=== PATIENT | female | born 1980 | race Caucasian/White ===

== ENCOUNTER 2020-09-04 13:08 | Outpatient (CLI) | payer OTHER | END 2020-09-04 13:09 | disposition home or self-care (01) | LOC: BICRAD 13:08 | PROVIDERS: ATTEND Physician Assistant | DX: M54.5 Low back pain (principal); M47.817 Spondylosis without myelopathy or radiculopathy, lumbosacral region | CPT/HCPCS: 72100 ==

== ENCOUNTER 2020-10-05 12:54 | Outpatient (CLI) | payer OTHER | END 2020-10-05 12:55 | disposition home or self-care (01) | LOC: BICCT 12:54 | PROVIDERS: ATTEND Family Medicine | DX: M47.816 Spondylosis without myelopathy or radiculopathy, lumbar region (principal); G89.4 Chronic pain syndrome; M51.26 Other intervertebral disc displacement, lumbar region; M51.27 Other intervertebral disc displacement, lumbosacral region; N20.0 Calculus of kidney | CPT/HCPCS: 72131 ==

== ENCOUNTER 2021-07-08 07:51 | Outpatient (CLI) | payer OTHER | END 2021-07-08 07:52 | disposition home or self-care (01) | LOC: BICMAMMO 07:51 | PROVIDERS: ATTEND Nurse Practitioner Women's Health | DX: Z12.31 Encounter for screening mammogram for malignant neoplasm of breast (principal); N64.89 Other specified disorders of breast | CPT/HCPCS: 77067 ==

== ENCOUNTER 2021-07-12 08:21 | Outpatient (CLI) | payer OTHER | END 2021-07-12 08:22 | disposition home or self-care (01) | LOC: BICMAMMO 08:21 | PROVIDERS: ATTEND Nurse Practitioner Women's Health | DX: R92.2 Inconclusive mammogram (principal) | CPT/HCPCS: G0279 ==